=== PATIENT | female | born 1995 | race Two or more races ===

== ENCOUNTER 2021-01-10 09:29 | Emergency (ER) | payer BC, SELFPAY ==
[2021-01-10 09:30] VITALS: BP 125/84; PULSE 117; RESP 20; TEMP 36.6; O2SAT 98; BMI 39.6
[2021-01-10 09:54] VITALS: PULSE 117; RESP 18; O2SAT 98; BMI 39.8
--- NOTE | 2021-01-10 10:11 | XR_ITS ---
PROCEDURE INFORMATION: Exam: XR Left Ankle Exam date and time: 01/10/2021 10:11 AM Age: 25 years old Clinical indication: Pain; Patient HX: Twisted left ankle. PT is 27 weeks , bianca signed and shielded; Additional info: Fall TECHNIQUE: Imaging protocol: XR Left ankle. Views: 3 or more views. COMPARISON: No relevant prior studies available. FINDINGS: Bones/joints: No acute fracture or dislocation. Soft tissues: Lateral soft tissue swelling. IMPRESSION: 1. No acute fracture or dislocation. 2. Lateral soft tissue swelling.
--- NOTE | 2021-01-10 10:42 | HMH.EDUTC ---
[facility] [place] Disposition Clinical Impression: 27 weeks gestation of Left ankle sprain Qualifiers: Encounter type: initial encounter Involved ligament of ankle: anterior talofibular ligament Qualified Code(s): S93.492A - Sprain of other ligament of left ankle, initial encounter Disposition: Home, Self-Care Condition on Discharge: Good Instructions: DI for Ankle Sprain Additional Instructions: Tylenol as needed for pain. Use walking boot when weight bearing. Try to keep foot elevated as often as possible. Ice frequently for the next few days. Follow up with PCP if not improving. Referrals: Provider,Referral, MD [Primary Care Provider] - Time of Disposition: 10:47 Medical Decision Making - Gio Inquiry Pt receiving controlled substance: No Vital Signs: 01/10/21 09:30 01/10/21 09:54 Temperature 98 F Temperature Source Oral Pulse Rate [Radial] 117 H 117 H Respiratory Rate 20 18 Blood Pressure [Right Arm] 125/84 Blood Pressure Mean [Right Arm] 97 Blood Pressure Position [Right Arm] Sitting 02 Sat by Pulse Oximetry 98 98 Oxygen Delivery Method Room Air Orders (Tests/Meds): ORDERS Category Date Time Status XR ankle LT min 3V Stat Exams 01/10/21 10:11 Taken - Radiology Data #1 Image(s): Ankle Image Reviewed: Yes I reviewed the patient's radiology image Preliminary Findings: No Fracture Seen Medical Decision Narrative: Shielded Xray due to pain directly over lateral malleolus, swelling, inability to bear weight. Patient was agreeable. [facility] [place] HPI - General Stated complaint: a/o left ankle injury Time Seen by Provider: 01/10/21 10:42 Mode of Arrival: Ambulatory Source of Information: Patient Limitations: No Limitations Description of Symptoms (Recalled from Triage Doc. by RN): PER ER TRIAGE: TO ED PER [facility] CAR WITH C/O FALL, INVERTED LT ANKLE C/O PAIN AND SWELLING. STATES CAUGHT HERSELF WITH OUTSTRETCHED HANDS. PT APPROX 27 WEEKS PREG. LMP 06/2020, EDC 04/08/21. DENIES ANY ABD PAIN HEENT Symptoms (Recalled from RN notes): No Resp Symptoms (Recalled from RN notes): No Skin Symptoms (Recalled from RN notes): No MS Symptoms (Recalled from RN notes): Yes Functional Status (Recalled from RN notes): wnl - History of Present Illness Provider Complaint: Patient fell this morning when she got home from work. She tripped and inverted her left ankle. She is 27 weeks but caught herself on outstretched hands. No trauma to abdomen. She can still feel baby moving normally. She has pain and swelling in the left outer ankle and it hurts to walk. Onset (ago): hour(s) (2) Location: left, lower extremity Radiation: non-radiation Relieving factors: immobilization Exacerbating factors: other (weight bearing) Associated symptoms: denies other symptoms Treatments prior to arrival: none - Worker's Comp Is this a Worker's Comp case?: No [facility] History - Hepatitis A Screen Drug use history?: No High risk sexual behaviors?: No History of sexually transmitted infection?: No Currently employed?: No Childcare worker?: No Do you have indoor plumbing?: Yes Do you have electricity?: Yes Attestation statement:: This patient has been screened for Hepatitis A risk factors. I have reviewed the patient's past medical history: Yes ROS Obtained: Yes All systems reviewed & no additional complaints - Musculoskeletal Musculoskeletal: Reports as per HPI, Reports joint pain, Reports joint swelling, Reports limited range of motion Physical Exam - General General appearance: alert, in no apparent distress - Head Head exam: atraumatic, normocephalic - Eye Eye exam: Present: PERRL - Respiratory Respiratory exam: Present: normal lung sounds bilaterally - Cardiovascular Cardiovascular exam: Present: regular rate, normal rhythm - Expanded Lower Extremity Exam Left Ankle exam: Present: tenderness (lateral malleolus), swelling, tenderness over talofibular lig, other (unable to b
[2021-01-10 10:55] VITALS: BP 125/84; PULSE 117; RESP 20; TEMP 36.6; O2SAT 98
== END 2021-01-10 10:56 | disposition home or self-care (01) ==
PROVIDERS: Emergency Provider Physician Assistant
DX: S93.492A Sprain of other ligament of left ankle, initial encounter (principal); W01.0XXA Fall on same level from slipping, tripping and stumbling without subsequent striking against object, initial encounter; Y92.019 Unspecified place in single-family (private) house as the place of occurrence of the external cause; Z3A.27 27 weeks gestation of pregnancy
CPT/HCPCS: 73610; 99202; G0463

== ENCOUNTER 2021-02-16 11:38 | Outpatient (CLI) | payer BC, SELFPAY ==
[2021-02-16 12:11] VITALS: BP 129/68; PULSE 115; RESP 18; TEMP 36.9; O2SAT 99; BMI 41.0
[2021-02-16 12:30] LABS: Microscopic, Urine URINE MICROSCOPIC (MICROSCOPIC)
[2021-02-16 12:37] LABS: Appearance,Urine SL CLOUDY (Clear); Bilirubin,Urine Negative (Negative); Blood, Urine Negative (Negative); Color,Urine YELLOW (Yellow); Glucose,Urine (UA) Negative (Negative); Ketones,Urine Negative (Negative); Leukocyte Esterase,Urine Negative (Negative); Nitrate,Urine Negative (Negative); Protein,Urine 2+ (Negative); Specific Gravity, Urine >= 1.030 (1.005-1.030); Urobilinogen,Urine 0.2 EU/dl (0.2)
[2021-02-16 12:47] LABS: Benzodiazepines Screen,Urine Negative ng/ml (<200)
[2021-02-16 12:48] LABS: Amphetamine/Metha Screen,Urine Negative ng/ml (<1000); Barbiturates Screen,Urine Negative ng/ml (<200)
[2021-02-16 12:49] LABS: Cannabinoid Screen,Urine Negative ng/ml (<50); Cocaine Screen,Urine Negative ng/ml (<300)
[2021-02-16 12:50] LABS: Methadone Screen,Urine Negative ng/ml (<300)
[2021-02-16 12:51] LABS: Opiate Screen,Urine Negative ng/ml (<300); Phencyclidine Screen,Urine Negative ng/ml (<25)
[2021-02-16 12:53] VITALS: BMI 41.0
[2021-02-16 12:53] LABS: WBC,Urine Occasional #/hpf (0-3)
[2021-02-16 12:54] LABS: Squamous Epithelial Cell,Urine Occasional #/hpf (0-5)
== END 2021-02-16 14:00 | disposition home or self-care (01) ==
LOC: OBOUT 11:50 → OB 11:51 → OBOUT 11:52 → OB 11:56
PROVIDERS: Visit Provider Nurse Practitioner Obstetrics & Gynecology
DX: O26.892 Other specified pregnancy related conditions, second trimester (principal); Z3A.32 32 weeks gestation of pregnancy; W19.XXXA Unspecified fall, initial encounter
CPT/HCPCS: 59025; 80305; 81001; G0463